=== PATIENT | male | born 1990 | race Caucasian/White ===

== ENCOUNTER 2019-01-25 20:18 | Emergency (ER) | payer BC, OTHER ==
[~2019-01-25] VITALS: Ht 190.5 cm; Wt 72.0 kg
[2019-01-25 23:33] VITALS: BP 123/60
== END 2019-01-25 23:35 | disposition home or self-care (01) ==
LOC: ED 22:28
DX: N45.1 Epididymitis (principal); N45.2 Orchitis; N50.811 Right testicular pain
CPT/HCPCS: 76870; 81003; 82962; 96372; 99284; J0696; Q0162